=== PATIENT | female | born 1970 | race Caucasian/White ===

== ENCOUNTER → 2016-08-31 | Outpatient (CLI) | payer BC, OTHER | END | disposition home or self-care (01) | LOC: C.PAPS 12:42 | PROVIDERS: ATTEND Obstetrics & Gynecology | DX: Z01.419 Encounter for gynecological examination (general) (routine) without abnormal findings (principal) ==

== ENCOUNTER → 2017-11-09 | Outpatient (CLI) | payer OTHER ==
--- NOTE | 2017-11-09 15:41 | MAMMOGRAPHY REPORT ---
BILATERAL DIGITAL SCREENING MAMMOGRAM TOMOSYNTHESIS WITH CAD: 11/09/2017 CLINICAL HISTORY: Routine screening. The patient has no current complaints. TECHNIQUE: The study was acquired using full field digital technology and interpreted from soft copy. Breast tomosynthesis in addition to standard 2D mammography was performed. Current study was also ev aluated with a Computer Aided Detection (CAD) system. COMPARISON: Comparison is made to exam dated: 09/04/2012 mammogram - [facility]. BREAST COMPOSITION: The tissue of both breasts is heterogeneously dense, which may obscure small mass es. FINDINGS: No suspicious masses, calcifications, or areas of architectural distortion are noted in either breast . There has been no significant interval change compared to prior exams. Bilateral subpectoral salin e implants are stable in appearance. IMPRESSION: ACR BI-RADS CATEGORY 2: BENIGN There is no mammographic evidence of malignancy. A 1 year screening mammogram is recommended.( 019) The patient will receive written notification of the results. Some breast cancers are not detected with mammography. A negative mammographic report should not shannon y biopsy if a clinically suggestive mass is present. Gabrielle Marrero M.D. ah/:11/09/2017 14:59:22 Welfare Case Worker: RT Goldie(Evelio)(M), [facility] letter sent: Normal 1/2 BI-RADS Code: ACR BI-RADS Category 2: Benign
== END | disposition home or self-care (01) ==
LOC: C.MAMM 14:05
PROVIDERS: ATTEND Obstetrics & Gynecology
DX: Z12.31 Encounter for screening mammogram for malignant neoplasm of breast (principal); Z98.82 Breast implant status

== ENCOUNTER 2023-10-05 07:05 | Inpatient (IN) ==
--- NOTE | 2023-10-05 07:48 | Emergency Department Note ---
History of Present Illness General Chief complaint: Back Injury/Pain Stated complaint: BACK AND ABD PAIN Time Seen by Provider: 10/05/23 07:32 History of Present Illness Maximum Pain Intensity: 8 This is a 53-year-old female that presents to the emergency department via private vehicle with complaints of "left back/left abdominal pain". The patient states that at 430 this morning she awoke with sudden onset left flank pain that radiates around in the left side of the abdomen. She has never had this before. She denies any trauma, injury, fevers, chills. She does note earlier in the week she did have some central lower chest pain and was to have blood work earlier today to further evaluate. Patient does note that earlier this year, in June, she had a full complement of cardiac stress test as well as pulmonary function test without a significant finding. No aggravating or alleviating factors of todays pain. The patient denies any history of kidney stones. No dysuria. Per review of the EMR the patient did undergo stress echocardiogram dated 07/13/2023. Interpretation of that revealed "normal stress echocardiogram at 6.9 METS and peak heart rate of 90 per 7% predicted maximum. No exercise-induced chest pain. No EKG changes. Baseline echocardiogram notes normal left ventricular systolic function without wall motion abnormalities". In addition, I also reviewed the patient's pulmonary function test as dated 07/02/2023. Home Medications Medication Instructions Recorded Confirmed Type norethindrone acetate 1.5 1 tab PO DAILY #84 tabs 06/12/23 10/05/23 Rx mg-ethinyl estradiol 30 mcg tablet (Junel) citalopram 10 mg tablet 10 mg PO QAM 10/05/23 10/05/23 History Allergies Allergy/AdvReac Type Severity Reaction Status Date / Time estrogens, conjugated Allergy Verified 10/04/23 14:41 [From Premarin] Past Med/Surg History Problem List (Updated 10/05/23 @ 19:37 by Marito Christensen PA-C) Abdominal pain, left lower quadrant (Acute) Acute left-sided low back pain (Acute) Pulmonary embolism (Acute) Renal infarct (Acute) JALIL (acute kidney injury) (Acute) Shortness of breath Elevated troponin (Acute) Flank pain Hypothyroid CYNDEE (generalized anxiety disorder) Oral contraceptive pill surveillance Surgical History Hx of breast surgery Hx of oral surgery Family History Father Reflux esophagitis Grandfather (Maternal) Lung cancer Grandmother (Paternal) Pancreatic cancer Other Endometriosis Denies family history of Ovarian cancer Prostate cancer Myocardial infarction Breast cancer Colorectal cancer Social History Smoking Status: Never smoker Second Hand Exposure: No; Do You Dip or Chew Tobacco: No; Hx Alcohol Use: Yes Alcohol type: wine Hx Substance Use: No Preferred Language: Cymraes Communication Ability: Effective Visual Impairment: No Limitations Hearing Ability: Normal Defect Cutter Required: No Beliefs That Will Affect Care: None marital status: Current Living Situation: Spouse current occupational status: employed 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 How many Children do You have: 2 Feels Safe at Home: Yes Childhood Exposure to Second-Hand Smoke: No Diet: regular Diet Comment: regular Dental Care, Regularly: Yes Physical Activity Frequency: 3-4 Times per Week Seatbelt Use: always Sunscreen Use: Yes Assistive Devices: Glasses Review of Systems A total of 10 systems reviewed and were otherwise negative Physical Exam Vital Signs Vital Signs - 24 hr 10/05/23 07:09 10/05/23 07:51 10/05/23 08:27 Temperature 36.7 C Temperature Source Oral Pulse Rate 80 81 Pulse Rate [Apical] 82 Respiratory Rate 24 18 Respiratory Effort / Characteristics Non-Labored Respiratory Depth Shallow Normal Respiratory Pattern Regular Blood Pressure 139/75 Blood Pressure [Right Arm] 139/104 H Blood Pressure Mean 96 Blood Pressure Mean [Right Arm] 115 Pulse Oximetry 95 96 Oxygen Delivery Method Room Air Room Air Sepsis Recent Fever Within 48 Hours No Sepsis New/Unexplained Change in Mental Status No Sepsis Action Taken by Nursing No Action Required 10/05/23 09:02 Temperature Temperature Source Pulse Rate Pulse Rate [Apical] 86 Respiratory Rate 18 Respiratory Effort / Characteristics Non-Labored Respiratory Depth Normal Respiratory Pattern Regular Blood Pressure Blood Pressure [Right Arm] 129/86 Blood Pressure Mean Blood Pressure Mean [Right Arm] 100 Pulse Oximetry 94 Oxygen Delivery Method Room Air Sepsis Recent Fever Within 48 Hours Sepsis New/Unexplained Change in Mental Status Sepsis Action Taken by Nursing VITAL SIGNS - Vital signs and nursing notes were reviewed. Stable and afebrile. GENERAL - 53-year-old female appearing her stated age who is in no acute distress. Communicates well with provider and answers questions appropriately. SKIN - Without rashes. HEAD - NC/AT. EYES - PERRL with EOMI bilaterally. Sclera anicteric. EARS - No deformities of external structures noted on gross examination bilaterally. NOSE - Midline and without cyanosis. No epistaxis or purulent drainage noted. MOUTH/OROPHARYNX - Without perioral cyanosis. NECK - Neck with FROM. No nuchal rigidity. LUNGS - Chest wall symmetric without accessory muscle use, intercostals retractions, or central cyanosis. Normal vesicular breath sounds CTA B/L. No wheezes, rales, or rhonchi appreciated. CARDIAC - RRR ABDOMEN - Abdominal contour normal without pulsations or visible masses. BS normoactive all four quadrants. No tenderness, palpable masses, hepatosplenomegaly, or ascites noted. EXTREMITIES - No clubbing or peripheral cyanosis. +5/5 strength noted in UE/LE bilaterally. MUSCULOSKELETALno reproducible tenderness to palpation overlying the L-spine. Patient does point to the paraspinous musculature just to the left of the inferior L-spine as a location of discomfort but the area is nontender. No overlying skin changes. NEUROLOGIC - Cranial nerves II through XII grossly intact. PSYCH - A&O, pleasant on exam. Pt is very pleasant and interacts well with examiner. Course Administered Medications Citalopram Hydrobromide (Citalopram 20 Mg Tab) 10 mg PO [facility] Stop: 11/04/23 16:38 Last Admin: 10/05/23 17:58 Dose: 10 mg Documented By: DANE Hydromorphone HCl (Hydromorphone Inj 0.5 Mg/0.5 Ml Syr) 0.5 mg IV Q6H PRN PRN Reason: moderate-severe pain Stop: 10/19/23 16:38 Last Admin: 10/05/23 17:52 Dose: 0.5 mg Documented By: DANE Heparin Sodium/Dextrose (Heparin Sodium/Dextrose) 25,000 units in 500 mls @ 22 mls/hr IV .[id number] [facility]; Protocol Stop: 11/04/23 12:44 Last Titration: 10/05/23 22:39 Dose: 1,100 units/hr, 22 mls/hr Documented By: ZHANE Co-signed By: MEENU Titration: 10/05/23 22:08 Dose: 1,150 units/hr, 23 mls/hr Documented By: ZHANE Co-signed By: ULISES Titration: 10/05/23 21:04 Dose: 0 units/hr, 0 mls/hr Documented By: ZHANE Co-signed By: ULISES Titration: 10/05/23 19:12 Dose: 1,250 units/hr, 25 mls/hr Documented By: DANE Co-signed By: ZHANE Titration: 10/05/23 16:40 Dose: 1,250 units/hr, 25 mls/hr Documented By: DANE Co-signed By: JUMA Admin: 10/05/23 13:58 Dose: 1,250 units/hr, 25 mls/hr Documented By: JAZMIN Co-signed By: MICKIE Sodium Chloride (Nss) 1,000 mls @ 125 mls/hr IV .Q8H [facility] Stop: 10/06/23 00:38 Last Admin: 10/05/23 17:57 Dose: 125 mls/hr Documented By: DANE Miscellaneous (Remove Lidoderm Patch) 1 each N/A DAILY@2100 [facility] Stop: 11/04/23 20:59 Last Admin: 10/05/23 19:59 Dose: 1 each Documented By: ZHANE Discontinued Medications Heparin Sodium (Porcine) (Heparin Sod (Porcine) 1000 Unit/Ml) 6,000 units IV NOW ONE Stop: 10/05/23 12:42 Last Admin: 10/05/23 13:58 Dose: 6,000 units Documented By: JAZMIN Co-signed By: MICKIE Hydromorphone HCl (Hydromorphone Inj 0.5 Mg/0.5 Ml Syr) 0.5 mg IV NOW STA Stop: 10/05/23 08:26 Last Admin: 10/05/23 08:30 Dose: Not Given Documented By: JUAN PABLO Hydromorphone HCl (Hydromorphone Inj 0.5 Mg/0.5 Ml Syr) 0.25 mg IV NOW STA Stop: 10/05/23 09:38 Last Admin: 10/05/23 09:44 Dose: 0.25 mg Documented By: KENTRELL Hydromorphone HCl (Hydromorphone Inj 0.5 Mg/0.5 Ml Syr) 0.25 mg IV NOW STA Stop: 10/05/23 11:17 Last Admin: 10/05/23 12:00 Dose: 0.25 mg Documented By: JAZMIN Sodium Chloride (Nss) 1,000 mls @ 500 mls/hr IV .Q2H [facility] Stop: 10/05/23 10:14 Last Infusion: 10/05/23 10:31 Dose: Infused Documented By: Admin: 10/05/23 08:27 Dose: 500 mls/hr Documented By: JUAN PABLO Ioversol (Optiray 320 125ml) 120 ml IV ONCE ONE Stop: 10/05/23 11:48 Last Admin: 10/05/23 17:15 Dose: Not Given Documented By: DANE Ketorolac Tromethamine (Ketorolac Tromethamine 15 Mg/Ml Vial) 10 mg IV NOW ONE Stop: 10/05/23 11:54 Last Admin: 10/05/23 12:05 Dose: 10 mg Documented By: JAZMIN Lidocaine (Lidocaine 5% 1 Patch) 1 patch TD NOW STA Stop: 10/05/23 09:38 Last Admin: 10/05/23 09:43 Dose: 1 patch Documented By: KENTRELL Morphine Sulfate (Morphine Sulfate 4 Mg/Ml 1 Ml Carp\\Vial) 4 mg IV NOW STA Stop: 10/05/23 07:43 Last Admin: 10/05/23 07:50 Dose: 4 mg Documented By: KENTRELL Morphine Sulfate (Morphine Sulfate 2 Mg/Ml Carp) 2 mg IV NOW STA Stop: 10/05/23 08:27 Last Admin: 10/05/23 08:30 Dose: 2 mg Documented By: JUAN PABLO Ondansetron HCl (Ondansetron Inj 2 Mg/Ml 2 Ml Vial) 4 mg IV NOW STA Stop: 10/05/23 07:43 Last Admin: 10/05/23 07:50 Dose: 4 mg Documented By: KENTRELL Medical Decision Making Laboratory Data 10/05/23 07:25 10/05/23 07:25 Lab Results 10/05/23 10/05/23 Range/Units 07:25 09:29 WBC 11.63 H (4.8-10.8) K/ul RBC 4.99 (4.20-5.40) M/uL Hgb 15.5 (12.0-16.0) g/dl Hct 46.9 (37.0-47.0) % MCV 94.0 (80.0-100.0) fL MCH 31.1 (25.0-34.0) pg MCHC 33.0 (32.0-36.0) g/dL RDW Std Deviation 43.3 (36.4-46.3) fL RDW Coeff of Joseph 12.5 (11.5-14.5) % Plt Count 252 (130-400) K/uL MPV 9.9 (9.4-12.4) fL Immature Gran % (Auto) 0.4 % Neut % (Auto) 83.1 % Lymph % (Auto) 10.5 % Dorado % (Auto) 4.1 % Eos % (Auto) 1.6 % Baso % (Auto) 0.3 % Neut # (Auto) 9.65 H (1.40-6.50) K/uL Lymph # (Auto) 1.22 (1.20-3.40) K/uL [place] # (Auto) 0.48 (0.11-0.59) K/uL Eos # (Auto) 0.19 (0.00-0.50) K/uL Baso # (Auto) 0.04 (0.00-0.20) K/uL Immature Gran # (Auto) 0.05 (0.01-0.20) K/uL PT 10.3 (9.0-12.0) Seconds INR 0.9 (0.9-1.1) APTT 23 (21-31) Seconds PTT Ratio 0.9 D-Dimer 7730 H* (0-500) ug/L FEU Sodium 138 (136-145) mmol/L Potassium 4.4 (3.5-5.1) mmol/L Chloride 108 H (98-107) mmol/L Carbon Dioxide 23 (21-32) mmol/L Anion Gap 7 (3-11) BUN 12 (6-23) mg/dl Creatinine 1.36 H (0.6-1.2) mg/dl Est Cr Clr Drug Dosing 53.8 ml/min Est GFR ( Amer) 51.7 ml/min Est GFR (Non-Af Amer) 44.6 ml/min BUN/Creatinine Ratio 8.8 L (10-20) Glucose 115 H (70-99(Fasting)) mg/dl Calcium 9.2 (8.6-10.3) mg/dl Total Bilirubin 0.5 (0.2-1.0) mg/dl AST 20 (13-39) U/L ALT 21 (7-52) U/L Alkaline Phosphatase 69 (34-104) U/L Troponin I High Sens 32.9 H 30.5 H (0-14) pg/ml Total Protein 7.1 (6.0-8.3) gm/dl Albumin 4.4 (3.4-5.0) gm/dl Globulin 2.7 (2.5-4.0) gm/dl Albumin/Globulin Ratio 1.6 (0.9-2) Lipase 18 (11-82) U/L TSH 6.737 H (0.300-4.500) uIu/ml Free T4 0.69 (0.61-1.60) ng/dl HCG, Qual Negative (Negative) Imaging Data Radiologist's Impression: Abdomen/Pelvis CT 10/05/23 11:00 CT SCAN OF THE ABDOMEN AND PELVIS WITH IV CONTRAST CLINICAL HISTORY: Left sided abdominal pain. Elevated d-dimer. COMPARISON STUDY: Unenhanced abdominal CT performed earlier the same day 10/05/2023. TECHNIQUE: Following the IV administration of 120 cc of Optiray 320, CT scan of the abdomen and pelvis is performed from the lung bases to the proximal femora. Images are reviewed in the axial, sagittal, and coronal planes. IV contrast was administered without complication. A dose lowering technique was utilized adhering to the principles of ALARA. FINDINGS: Lung bases: The heart is normal in size and without pericardial effusion. The lung bases are clear. Bilateral breast implants are partially imaged. Pulmonary emboli are seen within branches of the right and left lower lobe pulmonary arteries. Liver: The contrast-enhanced liver is normal in size, contour, and attenuation. Fatty infiltration is seen adjacent to the falciform ligament. There is no intrahepatic biliary ductal dilatation. The hepatic veins and portal veins are patent. A 2.1 cm left lobe hemangioma is seen on image #76. Gallbladder: Unremarkable. Spleen: Normal in size and attenuation. Pancreas: Unremarkable. Adrenal glands: Unremarkable. Kidneys: The contrast enhanced kidneys are normal in size and without hydronephrosis. There are large wedge-shaped perfusion defects noted in the left kidney consistent with renal infarcts. The right kidney enhances normally. Abdominal vasculature: The abdominal aorta is normal in course and caliber. Bowel: There are scattered colonic diverticula without CT evidence of acute diverticulitis. No bowel obstruction is seen. A duodenal diverticulum is noted. The appendix is well-visualized and normal. Peritoneum: There is no intraperitoneal free air or abdominal ascites. There is a fat-containing umbilical hernia. Lymphadenopathy: None. Pelvic viscera: The bladder is decompressed and grossly unremarkable. The uterus and adnexa are normal as imaged. There is trace free fluid in the cul-de-sac. Skeletal structures: No lytic or blastic lesions are seen. IMPRESSION: 1. There are bilateral lower lobe pulmonary emboli. 2. Large cortical infarcts are seen in the left kidney. 3. These findings raise suspicion for paradoxical embolus/[id number] shunt. Cardiology evaluation is recommended. 4. Trace free fluid in the pelvis is nonspecific and likely within physiologic limits. 5. Additional findings as above. ACT 112: Negative or not required by law. Electronically signed by: Conner Tipton M.D. 10/05/2023 12:08 PM Chest CTA 10/05/23 11:00 CT angio chest PE protocol CLINICAL HISTORY: Left low back/abdomen pain, kaitlin D-dimer+troponin TECHNIQUE: Multidetector row helical CT of the chest was performed with angiographic protocol. Coronal and sagittal reformations were obtained. Coronal and sagittal MIPS were obtained from the axial data set and were submitted for review. Automated dose lowering techniques and/or adjustment according to patient size were utilized for this exam. CT DOSE: 1731.13 mGy.cm Comparison: None available at the time of this dictation. FINDINGS: Lungs and pleura: Biapical scarring is seen. Heart and pericardium: There is questionable flattening of the interventricular septum and prominent right ventricle. Vessels: Pulmonary bullae are in the right main pulmonary artery and multiple segmental/subsegmental branches. Emboli are also seen in subsegmental branches on the left. Mediastinum and sparkle: Unremarkable. Chest wall and lower neck: Bilateral breast implants are seen. Abdomen: Unremarkable. Bones: Unremarkable. IMPRESSION: Nonocclusive right main pulmonary artery thrombus as well as segmental and subsegmental emboli in all lobes of the lungs. There is questionable right heart strain. No pulmonary infarcts. ACT 112: Negative or not required by law. Electronically signed by: Sundeep Brothers M.D. 10/05/2023 12:12 PM [facility] Narrative Patient was seen and evaluated as above in room B12b. Review was performed of triage nursing notes and vital signs. I did review pertinent outpatient visits and patient history. After obtaining a thorough history and physical examination the above work up was performed. Patient presents to us today for evaluation of left low back/flank pain that wraps around to the left abdomen. Specifically, I did have the patient sit up at the bedside and point to the area of pain in her low back and she points to the paraspinous musculature just to the left of the L-spine around the L5/S1 area. She notes that wraps around then to her lower left lower quadrant area. During review of systems questioning also identified the patient did have some chest pain earlier this week with dyspnea but she does note multiple tests of chest/pulmonary area earlier this year which was rather unremarkable. She did have a cardiac exercise stress test as noted in the HPI which was essentially negative. Patient denies any chest pain or shortness of breath the present time, rather notes left low back/left-sided abdominal pain. The pain is not reproducible on exam. She denies any history of kidney stones. Options of care were discussed with the patient. IV access was established. Labs were drawn. I did order the patient IV morphine for pain, IV Zofran for nausea and IV fluids as the patient does clinically appear mildly dry. CT scan of the abdomen/pelvis without contrast was ordered in addition to chest x-ray and laboratory studies. EKG reveals normal sinus rhythm at a rate of 70 bpm. QTc 442. QRS 70. No ST elevation. Chest x-ray was ordered and per my interpretation is negative for acute process. Labs reveal mild leukocytosis 11.63. No anemia. Coags normal. No emergent metabolic disturbance but will note mild JALIL with creatinine of 1.36. Hyperglycemia 115. Lipase normal. TSH reveals elevated finding at 6.7 with normal free T4. hCG negative. Urinalysis reveals what is likely a contaminated sample noting the amount of epithelial cells however, there is trace blood noted. A CT scan of the abdomen/pelvis was performed without contrast to evaluate this patient's sudden onset left low back and left lower quadrant abdominal pain. Initially noting the mild JALIL and suspicion for possible kidney stone, plan was to hold off on IV CT contrast. However, the patient's CT scan of the Abd/pelvis w/out contrast returned essentially negative for acute process revealing no renal or ureteral calculi or hydronephrosis and no bowel obstruction or bowel thickening. Initial troponin did return mildly elevated here today at 32.9 and then 30.5 upon recheck. There is no chest pain or shortness of breath at this time. At this time I do believe that further evaluation and management in the inpatient setting is warranted. I did discuss this with Dr. Pyle, hospitalist. In reviewing the patient, we did agree to proceed with a D-dimer noting the patient's elevated troponin in the setting of left low back pain, left lower quadrant pain but negative CT scan of the abdomen pelvis for acute process. I ordered the D dimer and it did return elevated at 7730. We will proceed now with contrasted studies of the chest, abdomen and pelvis. CT angio chest PE study and CT abd/pelvis w/ IV contrast. I reviewed the benefits and risks with the patient and through shared decision making we will proceed. CT scan results as above. Unfortunately studies reveal: nonocclusive right main pulmonary artery thrombus as well as segmental and subsegmental emboli in the lower lobes of the lungs. Question right heart strain. No pulmonary infarcts. There is also comment of large cortical infarct seen in the left kidney. There is concern and suspicion for paradoxical embolus/right to left shunt. I immediately reviewed these findings with the patient and family at bedside. The patient denies any history of blood clots. She denies any family history of blood clots. She denies any known clotting disorders. The patient denies any headache. She does not have any evidence of CVA on exam. She denies any known history of PFO. I did review benefit versus risk of IV heparin with the patient. At this time it is felt that the benefit outweighed risk. I then went to place the order for heparin however simultaneously the hospitalist also ordered heparin which at this time we will proceed with. In addition, stat echo also ordered by hospitalist service and will further manage the patient. Please refer to further documentation regarding the patient's stay. Patient and family were updated at bedside several times throughout the patient's stay and were able to ask questions. Patient was kept informed upon findings today and was involved in the decision- making process. Patient did receive IV analgesia throughout her time here in the emergency department for management of her symptoms. GCS: 15 In the evaluation and treatment of this patient the following differential diagnoses were entertained: UTI, pyelonephritis, dissection, renal calculi/ureteral calculi, diverticulitis, lumbar strain, sprain, cauda equina syndrome, renal infarct, among others Impression & Plan Pulmonary embolism, JALIL (acute kidney injury), Renal infarct, Elevated troponin, Acute left-sided low back pain, Abdominal pain, left lower quadrant Discharge Plan Visit Data Chief Complaint: Back Injury/Pain Stated Complaint: BACK AND ABD PAIN ED Provider: Yenifer Luo ED Midlevel Provider: Marito Christensen Discharge Problem: Pulmonary embolism, JALIL (acute kidney injury), Renal infarct, Elevated troponin, Acute left-sided low back pain, Abdominal pain, left lower quadrant Patient Disposition: Admitted As Inpatient Condition: Good Discharge Instructions Interventions: ED Discharge Assessment Last Done: 10/05/23 15:58
[2023-10-05] MEDS: MoRPHine SULFATE 4 MG/ML 1 ML CARP\\VIAL IV STA (07:50)
[2023-10-05] MEDS: ONDANSETRON INJ 2 MG/ML 2 ML VIAL IV STA (07:50)
[2023-10-05 07:57] LABS: Basophils # (auto) 0.04 K/uL (0.00-0.20); Basophils % (auto) 0.3 %; Eosinophils # (auto) 0.19 K/uL (0.00-0.50); Eosinophils % (auto) 1.6 %; Hematocrit (blood only) 46.9 % (37.0-47.0); Hemoglobin 15.5 g/dl (12.0-16.0); Immature Granulocytes # (auto) 0.05 K/uL (0.01-0.20); Immature Granulocytes % (auto) 0.4 %; Lymphocytes # (auto) 1.22 K/uL (1.20-3.40); Lymphocytes % (auto) 10.5 %; Mean Corpuscular Hemoglobin 31.1 pg (25.0-34.0); Mean Platelet Volume 9.9 fL (9.4-12.4); Monocytes # (auto) 0.48 K/uL (0.11-0.59); Monocytes % (auto) 4.1 %; Neutrophils # (auto) 9.65 K/uL (1.40-6.50); Neutrophils % (auto) 83.1 %; Platelet Count 252 K/uL (130-400); RDW Coefficient of Variation 12.5 % (11.5-14.5); RDW Standard Deviation 43.3 fL (36.4-46.3); Red Blood Count 4.99 M/uL (4.20-5.40); White Blood Count 11.63 K/ul (4.8-10.8)
[2023-10-05 08:12] LABS: Appearance Urine Cloudy (Clear); Bacteria Urine Automated 1+ (None Seen); Bilirubin Urine Negative (Negative); Blood Urine Trace (Negative); Cast Urine Automated 0-2 /lpf (0-2); Color Urine Dark Yellow; Epithelial Cell Urine Auto >20 /hpf (0-2); Glucose Urine UA Negative (Negative); Ketones Urine 2+ (Negative); Leukocyte Esterase Urine 1+ (Negative); Nitrite Urine Negative (Negative); Protein Urine 1+ (Negative); RBC Urine Automated 0-2 /hpf (0-2); Specific Gravity Urine 1.025 (1.000-1.030); Urobilinogen Urine Negative (Negative); pH Urine 5.5 (4.5-7.5)
[2023-10-05 08:17] LABS: Albumin Globulin Ratio 1.6 (0.9-2); Albumin Level 4.4 gm/dl (3.4-5.0); BUN Creatinine Ratio 8.8 (10-20); Bilirubin,Total 0.5 mg/dl (0.2-1.0); Calcium 9.2 mg/dl (8.6-10.3); Creatinine Clr Calc Pharmacy 53.8 ml/min; Est GFR (African American) 51.7 ml/min; Est GFR (Non-African American) 44.6 ml/min; Globulin 2.7 gm/dl (2.5-4.0); Potassium 4.4 mmol/L (3.5-5.1); Total Protein 7.1 gm/dl (6.0-8.3)
[2023-10-05 08:21] LABS: Pregnancy Test, Serum Negative (Negative)
[2023-10-05 08:23] LABS: Troponin I High Sensitivity 32.9 pg/ml (0-14)
[2023-10-05] MEDS: SODIUM CHLORIDE 0.9% 1,000 ML IV SCH ×2 (08:27→17:57)
[2023-10-05] MEDS: MoRPHine SULFATE 2 MG/ML CARP IV STA (08:30)
[2023-10-05] MEDS: HYDROmorphone INJ 0.5 MG/0.5 ML SYR IV STA ×3 (08:30→12:00)
--- NOTE | 2023-10-05 08:30 | XRay Report ---
SINGLE VIEW CHEST CLINICAL HISTORY: Left-sided chest pain. Left flank pain. FINDINGS: An AP, portable, upright chest radiograph is compared to study dated 06/15/2023. The cardiome diastinal silhouette is unremarkable. There is mild elevation of the right hemidiaphragm. The lungs a nd pleural spaces are clear. No pneumothorax is seen. The bony thorax is grossly intact. IMPRESSION: No active disease in the chest. ACT 112: Negative or not required by law. Electronically signed by: Conner Tipton M.D. 10/05/2023 8:27 AM
[2023-10-05 08:33] LABS: Thyroid Stimulating Hormone 6.737 uIu/ml (0.300-4.500)
--- NOTE | 2023-10-05 08:41 | CT Scan Report ---
ABDOMEN AND PELVIS CT WITHOUT CONTRAST CT DOSE: 860.92 mGy.cm HISTORY: Acute left-sided flank pain L flank/back/abd pain TECHNIQUE: Multiaxial CT images of the abdomen and pelvis were performed without contrast. A dose lo wering technique was utilized adhering to the principles of ALARA. COMPARISON STUDY: None. FINDINGS: Partially imaged breast implants. Clear lung bases. The unenhanced spleen, pancreas, gallbl adder and adrenal glands are within normal limits. Indeterminate ill-defined slightly hypodense 2.0 x 1.8 cm left hepatic lobe lesion on image 60 series 3. Liver is otherwise unremarkable. Unremarkable kidneys without renal or ureteral calculi or hydronephrosis. Decompressed. Urinary bladd er with wall thickening. Uterus and adnexa are within normal limits. No abdominal aortic aneurysm or lymphadenopathy. Duodenal diverticulum. No bowel obstruction or bowel wall thickening. There is mild colonic diverticu losis. No ascites or mesenteric inflammation. The appendix is not definitively seen. Tiny fat filled umbilical hernia. No acute fracture. IMPRESSION: 1. No renal or ureteral calculi or hydronephrosis. 2. No bowel obstruction or bowel wall thickening. 3. Colonic diverticulosis. 4. Indeterminate 2 cm left hepatic lobe lesion, incompletely characterized on this noncontrast study. ACT 112: Negative or not required by law. The above report was generated using voice recognition software. It may contain grammatical, syntax o r spelling errors. Electronically signed by: Tyrone Carter M.D. 10/05/2023 8:39 AM
[2023-10-05 09:12] LABS: T4 Free Thyroxine 0.69 ng/dl (0.61-1.60)
--- NOTE | 2023-10-05 09:27 | History & Physical Report ---
Date of Service October 05, 2023 Assessment & Plan (1) Pulmonary embolism: Plan: Presented with shortness of breath and chest pain which had largely resolved several days prior to admission, left calf cramping. Venous Doppler ordered-shows left peroneal vein DVT. CT angiogram chest with right main pulmonary artery PE and multiple bilateral segmental and subsegmental PEs. No history personally or in the family of VTE, no history of miscarriages in the patient, no recent surgeries or long travel. She is quite active and not sedentary. She is however on oral contraceptive pills. She is a non-smoker. She has a history of headaches and chronic joint pains, hypothyroidism-question if does have some sort of chronic autoimmune disorder that could put her at risk for hypercoagulability She is hemodynamically stable, has a mildly elevated troponin. With left renal infarct, likely has PFO with paradoxical embolus, but could also have occult atrial fibrillation/flutter. Admit to PCU for telemetry monitoring for arrhythmias Start heparin drip and eventually convert to DOAC Order hypercoagulable workup Supplemental oxygen as needed to keep pulse ox greater than 90% IV Dilaudid as needed for pain control Monitor for withdrawal vaginal bleeding when she discontinues her continuous OCP's-can reach out to gynecology if has any issues (2) Elevated troponin: Plan: No ischemic changes on ECG. Typically is very active and just had a normal stress test in 06/2023 Secondary to PE-trend serial troponin Echocardiogram ordered (3) Renal infarct: Plan: Likely secondary to paradoxical embolus given DVT and PEs, but could also have hypercoagulable state versus a occult atrial fibrillation or flutter Monitor on telemetry for arrhythmia Checking echocardiogram with bubble study Starting heparin drip Renal function is decreased somewhat with creatinine 1.3. Follow BMP Consult urology Monitor blood pressures and monitor for development of pyelonephritis Pain control with IV Dilaudid (4) JALIL (acute kidney injury): Plan: Creatinine 1.3 on admission likely secondary to renal infarct Follow BMP Give 1 L normal saline (5) Hypothyroid: Plan: Previously was on levothyroxine but discontinued it. TSH here elevated at 6.7, free T4 normal Subclinical hypothyroidism Follow as an outpatient (6) CYNDEE (generalized anxiety disorder): Plan: Patient recently was prescribed Celexa but has not yet started it. She has been on it in the past and is agreeable to resuming as her anxiety has worsened recently Start Celexa 10 mg p.o. daily Plan Disposition-admit to PCU Full code Care discussed with cardiology, ED provider, and family members at the bedside History of Present Illness Chief Complaint: Left flank pain Primary Care Provider: Rhonda Pearson MD This patient is a 53-year-old female with history of generalized anxiety disorder and hypothyroidism who presents to the ER with acute onset of left flank pain wrapping around to the left lower quadrant that woke her from sleep at 430 this morning. She does reports that she had some chest pain and shortness of breath a few days ago but that has since resolved. She has noticed some swelling in the ankles lately and had cramping in her left calf this morning. She denies any urinary or bowel issues. No blood in the stool or urine. No fevers or chills. She has had intermittent issues with shortness of breath and a dry cough but had a full cardiac and pulmonary workup several months ago that was normal with normal stress test and PFTs. In the ER, she was found to have a normal noncontrast CT abdomen/pelvis and a normal chest x-ray, however her troponin was mildly elevated. I suggested a D- dimer which was added on and was elevated and a subsequent CT angiogram of the chest showed a right main pulmonary artery PE and multiple bilateral segmental and subsegmental PEs. A CT of the abdomen/pelvis with contrast then showed multiple infarcts in the left kidney. She will be admitted for PEs and left renal infarct. Allergies Allergy/AdvReac Type Severity Reaction Status Date / Time estrogens, conjugated Allergy Verified 10/04/23 14:41 [From Premarin] Home Medications Medication Instructions Recorded Confirmed Type norethindrone acetate 1.5 1 tab PO DAILY #84 tabs 06/12/23 10/05/23 Rx mg-ethinyl estradiol 30 mcg tablet (Junel) citalopram 10 mg tablet 10 mg PO QAM 10/05/23 10/05/23 History Past Med/Surg History Problem List Abdominal pain, left lower quadrant (Acute) Acute left-sided low back pain (Acute) Pulmonary embolism (Acute) Renal infarct (Acute) JALIL (acute kidney injury) (Acute) Shortness of breath Elevated troponin (Acute) Flank pain Hypothyroid CYNDEE (generalized anxiety disorder) Oral contraceptive pill surveillance Surgical History Hx of breast surgery Hx of oral surgery Family History Father Reflux esophagitis Grandfather (Maternal) Lung cancer Grandmother (Paternal) Pancreatic cancer Other Endometriosis Denies family history of Ovarian cancer Prostate cancer Myocardial infarction Breast cancer Colorectal cancer Social History Smoking Status: Never smoker Second Hand Exposure: No; Do You Dip or Chew Tobacco: No; Hx Alcohol Use: Yes Alcohol type: wine Hx Substance Use: No Preferred Language: Japanese Communication Ability: Effective Visual Impairment: No Limitations Hearing Ability: Normal Bunghole Borer Required: No Beliefs That Will Affect Care: None marital status: Current Living Situation: Spouse current occupational status: employed 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 How many Children do You have: 2 Feels Safe at Home: Yes Childhood Exposure to Second-Hand Smoke: No Diet: regular Diet Comment: regular Dental Care, Regularly: Yes Physical Activity Frequency: 3-4 Times per Week Seatbelt Use: always Sunscreen Use: Yes Assistive Devices: Glasses Review of Systems Review of Systems: All systems reviewed & are unremarkable except as noted in HPI & below Physical Exam Constitutional: WD/WN, vitals as above Eyes: PERRL, conjunctivae normal, anicteric sclerae ENMT: external ear and nose normal, oropharynx normal Neck: trachea midline, no thyromegaly Respiratory: normal respiratory effort, lungs clear to auscultation Cardiovascular: Rate/Rhythm: regular rate and regular rhythm Heart Sounds: no murmur Extremities: + edema (trace edema left leg) Gastrointestinal (Abdomen): Inspection/Auscultation: abdomen normal to inspection and normal bowel sounds; abdomen not distended Percussion/Palpation: + abdomen tender (Left CVA TTP and positive TTP LLQ without guarding or rebound) and abdomen soft; no guarding Musculoskeletal: Extremities: extremities normal to inspection; no cyanosis and no clubbing Skin: no rashes, warm and dry Neurologic: moves all extremities and awake; no focal motor deficits Psychiatric: A+Ox3, euthymic affect Results & Data Results & Data Vital Signs (Past 12 Hours) Vital Signs Temp Pulse Pulse Resp BP BP Pulse Ox 10/05/23 09:02 86 18 129/86 94 10/05/23 08:27 81 10/05/23 07:51 82 18 139/104 H 96 10/05/23 07:09 36.7 C 80 24 139/75 95 O2 Del Method 10/05/23 09:02 Room Air 10/05/23 08:27 10/05/23 07:51 Room Air 10/05/23 07:09 Room Air Laboratory Results CBC, CMP, troponin, TSH, free T4, hCG, urinalysis, D-dimer reviewed Diagnostic Findings CT abdomen/pelvis without contrast, CT abdomen/pelvis with contrast, CT a chest, chest x-ray all reviewed ECG Additional Comments: ECG on 10/05/2023 at 7:49 AM with normal sinus rhythm, rate 78, no ischemic changes Code Status & VTE Plan VTE Prophylaxis Plan VTE Prophylaxis will be ordered: Yes PG Care Time/CCT Total # of Minutes Spent Total Time Spent with Patient: Total time spent is greater than 50% in coordination of care (as documented) at patient's floor/unit and/or counseling patient: Coding Level of Care Code 25572 INT INP/OBS CARE 3/75MIN Diagnoses Pulmonary embolism I26.99 Elevated troponin R79.89 Renal infarct N28.0 JALIL (acute kidney injury) N17.9 Hypothyroid E03.9 CYNDEE (generalized anxiety disorder) F41.1
[2023-10-05 09:30] LABS: INR 0.9 (0.9-1.1); Partial Thromboplastin Ratio 0.9; Partial Thromboplastin Time 23 Seconds (21-31); Prothrombin Time 10.3 Seconds (9.0-12.0)
[2023-10-05] MEDS: LIDOCAINE 5% 1 PATCH TD STA (09:43)
[2023-10-05 10:52] LABS: D Dimer 7730 ug/L FEU (0-500)
--- NOTE | 2023-10-05 11:03 | Electrocardiogram Report ---
Test Reason : Blood Pressure : / mmHG Vent. Rate : 078 BPM Atrial Rate : 078 BPM P-R Int : 156 ms QRS Dur : 070 ms QT Int : 388 ms P-R-T Axes : 076 -03 067 degrees QTc Int : 442 ms Normal sinus rhythm Normal ECG No previous ECGs available Confirmed by Frederick Hamm ([id number]) on 10/05/2023 11:03:10 AM Referred By: REFERRED SELF Confirmed By:Frederick Hamm
[2023-10-05] MEDS: KETOROLAC TROMETHAMINE 15 MG/ML VIAL IV ONE (12:05)
--- NOTE | 2023-10-05 12:10 | CT Scan Report ---
CT SCAN OF THE ABDOMEN AND PELVIS WITH IV CONTRAST CLINICAL HISTORY: Left sided abdominal pain. Elevated d-dimer. COMPARISON STUDY: Unenhanced abdominal CT performed earlier the same day 10/05/2023. TECHNIQUE: Following the IV administration of 120 cc of Optiray 320, CT scan of the abdomen and pelv is is performed from the lung bases to the proximal femora. Images are reviewed in the axial, sagitta l, and coronal planes. IV contrast was administered without complication. A dose lowering technique w as utilized adhering to the principles of ALARA. FINDINGS: Lung bases: The heart is normal in size and without pericardial effusion. The lung bases are clear. B ilateral breast implants are partially imaged. Pulmonary emboli are seen within branches of the right and left lower lobe pulmonary arteries. Liver: The contrast-enhanced liver is normal in size, contour, and attenuation. Fatty infiltration is seen adjacent to the falciform ligament. There is no intrahepatic biliary ductal dilatation. The hep atic veins and portal veins are patent. A 2.1 cm left lobe hemangioma is seen on image #76. Gallbladder: Unremarkable. Spleen: Normal in size and attenuation. Pancreas: Unremarkable. Adrenal glands: Unremarkable. Kidneys: The contrast enhanced kidneys are normal in size and without hydronephrosis. There are large wedge-shaped perfusion defects noted in the left kidney consistent with renal infarcts. The right ki dney enhances normally. Abdominal vasculature: The abdominal aorta is normal in course and caliber. Bowel: There are scattered colonic diverticula without CT evidence of acute diverticulitis. No bowel obstruction is seen. A duodenal diverticulum is noted. The appendix is well-visualized and normal. Peritoneum: There is no intraperitoneal free air or abdominal ascites. There is a fat-containing umbi lical hernia. Lymphadenopathy: None. Pelvic viscera: The bladder is decompressed and grossly unremarkable. The uterus and adnexa are chencho l as imaged. There is trace free fluid in the cul-de-sac. Skeletal structures: No lytic or blastic lesions are seen. IMPRESSION: 1. There are bilateral lower lobe pulmonary emboli. 2. Large cortical infarcts are seen in the left kidney. 3. These findings raise suspicion for paradoxical embolus/[id number] shunt. Cardiology evaluation is recommended. 4. Trace free fluid in the pelvis is nonspecific and likely within physiologic limits. 5. Additional findings as above. ACT 112: Negative or not required by law. Electronically signed by: Conner Tipton M.D. 10/05/2023 12:08 PM
--- NOTE | 2023-10-05 12:14 | CT Scan Report ---
CT angio chest PE protocol CLINICAL HISTORY: Left low back/abdomen pain, kaitlin D-dimer+troponin TECHNIQUE: Multidetector row helical CT of the chest was performed with angiographic protocol. Way l and sagittal reformations were obtained. Coronal and sagittal MIPS were obtained from the axial yajaira a set and were submitted for review. Automated dose lowering techniques and/or adjustment according to patient size were utilized for this exam. CT DOSE: 1731.13 mGy.cm Comparison: None available at the time of this dictation. FINDINGS: Lungs and pleura: Biapical scarring is seen. Heart and pericardium: There is questionable flattening of the interventricular septum and prominent right ventricle. Vessels: Pulmonary bullae are in the right main pulmonary artery and multiple segmental/subsegmental branches. Emboli are also seen in subsegmental branches on the left. Mediastinum and sparkle: Unremarkable. Chest wall and lower neck: Bilateral breast implants are seen. Abdomen: Unremarkable. Bones: Unremarkable. IMPRESSION: Nonocclusive right main pulmonary artery thrombus as well as segmental and subsegmental emboli in all lobes of the lungs. There is questionable right heart strain. No pulmonary infarcts. ACT 112: Negative or not required by law. Electronically signed by: Sundeep Brothers M.D. 10/05/2023 12:12 PM
[2023-10-05] MEDS ORDERED: Heparin IV Adult Wt-Based Standard w/ INITIAL Bolus Protocol IV SCH (12:34)
--- NOTE | 2023-10-05 13:31 | Urology Consultation ---
Date of Consultation October 05, 2023 Assessment & Plan (1) Flank pain: (2) Renal infarct: 53 yo/F presenting to the emergency department today with sudden onset of left flank pain. Workup in the emergency department revealed left renal infarct as well as bilateral pulmonary emboli. Urology is consulted for left renal infarct Patient is afebrile, hemodynamically stable at this time Labs reviewedcreatinine 1.36, WBC 11.63, hemoglobin 15.5 Urine culture pendingfollow culture and treat if indicated CT abdomen pelvis with IV contrast reviewed and demonstrates large cortical infarcts in the left kidney Reviewed and discussed findings with patient No acute surgical intervention She is undergoing echocardiogram, cardiology consult pending Recommend supportive care, blood pressure monitoring and medical management Recommend hypercoagulable workup Management of PEs per hospital medicine Case reviewed and discussed with Dr. Wood SOSA will sign off, please contact our service with any additional questions or concerns History of Present Illness Reason for Consultation: Left renal infarct Requesting Physician: Dr. Pyle Attending Physician: Lizzy Pyle MD History of Present Illness This is a 53-year-old female with past medical history of hypothyroidism, CYNDEE, oral contraceptive use who presented to the emergency department today for evaluation of sudden onset of left flank pain starting earlier this morning. On arrival, she was afebrile and hemodynamically stable. Lab work showed WBC 11.63, hemoglobin 15.5, creatinine 1.36, D-dimer 7730, and troponin 32.9. Urinalysis showed 1+ protein, 2+ ketones, 1+ LE, 11-20 WBC, 0-2 RBC, >20 epithelial cells and 1+ bacteria. Noncontrast CT A/P showed no renal or ureteral calculi, no hydronephrosis. She underwent CT A/P with IV contrast which noted bilateral lower lobe pulmonary emboli. Large cortical infarcts seen in the left kidney. Chest CTA showed nonocclusive right main pulmonary artery thrombus as well as segmental and subsegmental emboli in all lobes of the lungs. She has been admitted to the hospital medicine service. Urology is consulted for left renal infarct. Patient seen and examined in the emergency department. She is awake and resting in litter currently undergoing echocardiogram. She reports a history of dyspnea on exertion in June. She previously underwent a workup in with cardiac stress test and pulmonary function testing without significant findings. She reports within the last week she noticed worsening dyspnea. She denies dysuria or hematuria. No significant UTI history or history of pyelonephritis. She denies nausea, vomiting, fever or chills. She continues to have left flank pain radiating to the left side of her abdomen. She currently rates her pain at 8 out of 10, has not improved since arrival. She reports she is on oral contraceptive pill. Allergies Allergy/AdvReac Type Severity Reaction Status Date / Time estrogens, conjugated Allergy Verified 10/04/23 14:41 [From Premarin] Home Medications Medication Instructions Recorded Confirmed Type norethindrone acetate 1.5 1 tab PO DAILY #84 tabs 06/12/23 10/05/23 Rx mg-ethinyl estradiol 30 mcg tablet (Junel) citalopram 10 mg tablet 10 mg PO QAM 10/05/23 10/05/23 History Patient History Surgical History Hx of breast surgery Hx of oral surgery Family History Father Reflux esophagitis Grandfather (Maternal) Lung cancer Grandmother (Paternal) Pancreatic cancer Other Endometriosis Denies family history of Ovarian cancer Prostate cancer Myocardial infarction Breast cancer Colorectal cancer Social History Smoking Status: Never smoker Second Hand Exposure: No; Do You Dip or Chew Tobacco: No; Hx Alcohol Use: No Hx Substance Use: No Preferred Language: Nepali Communication Ability: Effective Visual Impairment: No Limitations Hearing Ability: Normal Assistant Professor Of Sociology Required: No marital status: Current Living Situation: Spouse current occupational status: employed 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 How many Children do You have: 2 Feels Safe at Home: Yes Childhood Exposure to Second-Hand Smoke: No Diet: regular Diet Comment: regular Dental Care, Regularly: Yes Physical Activity Frequency: 3-4 Times per Week Seatbelt Use: always Sunscreen Use: Yes Assistive Devices: None Review of Systems Review of Systems: All systems reviewed & are unremarkable except as noted in HPI & below Physical Exam Constitutional: well developed and well nourished; no acute distress Eyes: no scleral abnormality Respiratory: normal respiratory effort; no respiratory distress and no labored breathing Gastrointestinal (Abdomen): Inspection/Auscultation: abdomen normal to inspection Musculoskeletal: Head/Neck/Chest: normocephalic Neurologic: moves all extremities and awake Psychiatric: Orientation: alert and oriented x 3 Results & Data Vital Signs (Past 12 Hours) Vital Signs Temp Pulse Pulse Resp BP BP Pulse Ox 10/05/23 12:42 79 10/05/23 11:12 78 16 131/84 91 10/05/23 09:02 86 18 129/86 94 10/05/23 08:27 81 10/05/23 07:51 82 18 139/104 H 96 10/05/23 07:09 36.7 C 80 24 139/75 95 O2 Del Method 10/05/23 12:42 10/05/23 11:12 Room Air 10/05/23 09:02 Room Air 10/05/23 08:27 10/05/23 07:51 Room Air 10/05/23 07:09 Room Air PG Care Time/CCT Total # of Minutes Spent Total Time Spent with Patient: Total time spent is greater than 50% in coordination of care (as documented) at patient's floor/unit and/or counseling patient: Coding Level of Care Code 02781 IN/OBS CONSULT LVL 4,60M Diagnoses Flank pain R10.9 Renal infarct N28.0
[2023-10-05] MEDS: HEPARIN SODIUM/DEXTROSE 25,000 UNITS/500 ML BAG IV SCH (13:58)
[2023-10-05] MEDS: HEPARIN SOD (PORCINE) 1000 UNIT/ML IV ONE (13:58)
--- NOTE | 2023-10-05 16:21 | Ultrasound Report ---
ULTRASOUND LEFT LOWER EXTREMITY VENOUS CLINICAL HISTORY: Left calf pain. COMPARISON STUDY: No priors TECHNIQUE: Real-time, grayscale, and color Doppler sonography of the deep veins of the left lower ext remity was performed from the inguinal crease to the calf. Compression and augmentation were utilized . FINDINGS: There is occlusive deep venous thrombosis seen in the peroneal veins. The remaining visuali zed calf vessels are patent. The common femoral, superficial femoral, and popliteal veins are patent and normally compressible. The greater saphenous vein and the profunda femoris vein at the junction w ith the common femoral vein are clear. IMPRESSION: Occlusive deep venous thrombosis is seen in the calf within the peroneal veins. ACT 112: Negative or not required by law. Electronically signed by: Conner Tipton M.D. 10/05/2023 4:20 PM
[2023-10-05] MEDS ORDERED: POLYETHYLENE (MIRALAX) 17 GM PACK PO PRN (16:39)
[2023-10-05] MEDS ORDERED: ONDANSETRON INJ 2 MG/ML 2 ML VIAL IV PRN (16:39)
--- NOTE | 2023-10-05 16:55 | XCELERA ---
[id number] \\[id number]
[2023-10-05] MEDS: OPTIRAY 320 125ml IV ONE (17:15)
[2023-10-05] MEDS: HYDROmorphone INJ 0.5 MG/0.5 ML SYR IV PRN (17:52)
[2023-10-05] MEDS: CITALOPRAM 20 MG TAB PO SCH (17:58)
[2023-10-05 20:54] LABS: ANTI-Xa, UFH(UnfractionatedHep 0.83 IU/ml (0.3-0.7)
[2023-10-06 08:29] LABS: Basophils # (auto) 0.03 K/uL (0.00-0.20); Basophils % (auto) 0.4 %; Eosinophils # (auto) 0.05 K/uL (0.00-0.50); Eosinophils % (auto) 0.6 %; Hematocrit (blood only) 40.3 % (37.0-47.0); Hemoglobin 13.2 g/dl (12.0-16.0); Immature Granulocytes # (auto) 0.02 K/uL (0.01-0.20); Immature Granulocytes % (auto) 0.3 %; Lymphocytes % (auto) 11.5 %; Mean Corpuscular Hemoglobin 31.4 pg (25.0-34.0); Mean Corpuscular Hgb Conc 32.8 g/dL (32.0-36.0); Mean Platelet Volume 10.1 fL (9.4-12.4); Monocytes # (auto) 0.42 K/uL (0.11-0.59); Monocytes % (auto) 5.4 %; Neutrophils % (auto) 81.8 %; Platelet Count 190 K/uL (130-400); RDW Coefficient of Variation 12.6 % (11.5-14.5); RDW Standard Deviation 43.9 fL (36.4-46.3); White Blood Count 7.82 K/ul (4.8-10.8)
[2023-10-06 08:32] LABS: Albumin Globulin Ratio 1.7 (0.9-2); Albumin Level 3.8 gm/dl (3.4-5.0); BUN Creatinine Ratio 9.6 (10-20); Bilirubin,Total 0.6 mg/dl (0.2-1.0); Calcium 8.5 mg/dl (8.6-10.3); Creatinine Clr Calc Pharmacy 64.4 ml/min; Est GFR (African American) 63.4 ml/min; Est GFR (Non-African American) 54.7 ml/min; Globulin 2.3 gm/dl (2.5-4.0); Potassium 4.7 mmol/L (3.5-5.1); Total Protein 6.1 gm/dl (6.0-8.3)
[2023-10-06 08:38] LABS: Troponin I High Sensitivity 23.3 pg/ml (0-14)
[2023-10-06 08:41] LABS: ANTI-Xa, UFH(UnfractionatedHep 0.33 IU/ml (0.3-0.7)
--- NOTE | 2023-10-06 12:16 | Cardiology Consultation ---
Date of Consultation October 06, 2023 Assessment & Plan (1) Abnormal echocardiogram: -bubble study suggests a significant [id number] shunt. -her presentation of a left lower extremity DVT, pulmonary emboli, renal infarction suggests a right to left shunt. -her workup should be performed by an adult congenital palliative care specialist. -the family favors [facility]. They will get me a contact physician. History of Present Illness Attending Physician: Lizzy Pyle MD History of Present Illness Mrs. Estrada is a 53-year-old female admitted yesterday with bilateral pulmonary emboli, left renal infarction, and the left lower extremity DVT. This consultation was ordered to assist in her cardiac management. The patient was in her usual state of health until last Sunday when she experienced a prolonged chest pain syndrome along with dyspnea. Her chest discomfort events resolved, however, dyspnea has persisted. On the morning of presentation, she woke at 4:30 with sudden onset of left-sided flank pain. She explains that this was excruciating, therefore, she presented to the emergency room for further care. Evaluation noted a left renal infar ction. She was also found to have a nonobstructing right main pulmonary artery embolism along with multiple segmental and subsegmental pulmonary emboli bilaterally. She was also found to have a left lower extremity DVT. Her echocardiogram noted normal left ventricular systolic function and a dilated right ventricle with normal function. The interventricular septum was flattened consistent with right-sided pressure and volume overload. The bubble study was extremely positive on the 1st beat suggesting a shunt. Results personally reviewed and discussed in detail. We have discussed need to involve an adult congenital palliative care specialist. The family would like to reach out to [facility] as their daughter works within that [facility]. Currently, patient is resting comfortably in bed without complaints. Past medical and surgical history 1. Hypothyroidism 2. 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 Allergies Allergy/AdvReac Type Severity Reaction Status Date / Time estrogens, conjugated Allergy Verified 10/04/23 14:41 [From Premarin] Home Medications Medication Instructions Recorded Confirmed Type norethindrone acetate 1.5 1 tab PO DAILY #84 tabs 06/12/23 10/05/23 Rx mg-ethinyl estradiol 30 mcg tablet (Junel) citalopram 10 mg tablet 10 mg PO QAM 10/05/23 10/05/23 History Patient History Surgical History Hx of breast surgery Hx of oral surgery Family History Father Reflux esophagitis Grandfather (Maternal) Lung cancer Grandmother (Paternal) Pancreatic cancer Other Endometriosis Denies family history of Ovarian cancer Prostate cancer Myocardial infarction Breast cancer Colorectal cancer Social History Smoking Status: Never smoker Second Hand Exposure: No; Do You Dip or Chew Tobacco: No; Hx Alcohol Use: Yes Alcohol type: wine Hx Substance Use: No Preferred Language: Ukrainian Communication Ability: Effective Visual Impairment: No Limitations Hearing Ability: Normal Professor Of Violin Required: No Beliefs That Will Affect Care: None marital status: Current Living Situation: Spouse current occupational status: employed 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 HEENT exam is negative. Neck is supple with full carotid upstrokes. There are no carotid bruits. Jugular venous pressure is flat at 90. There is no thyromegaly. Cardiovascular exam reveals a regular rhythm with a normal S1 and a split S2. No obvious murmurs. Lungs are clear without rales, rhonchi, or wheezes. Abdomen is soft and nontender without bruits. Extremities reveal intact radial artery and posterior tibial pulses bilaterally. There is no peripheral edema. Results & Data Vital Signs (Past 12 Hours) Vital Signs Temp Pulse Pulse Resp BP Pulse Ox O2 Del Method 10/06/23 08:26 72 10/06/23 07:54 37.0 C 80 18 129/85 97 Nasal Cannula 10/06/23 03:29 36.5 C 82 19 119/77 94 Nasal Cannula 10/06/23 00:50 82 O2 Flow Rate 10/06/23 08:26 10/06/23 07:54 1.0 10/06/23 03:29 1 10/06/23 00:50 Diagnostic Findings Echocardiogram notes normal left ventricular systolic function with ejection fraction of 60-65%. There were no wall motion abnormality. The right ventricle is dilated but has normal function. The interventricular septum is flattened suggesting right-sided pressure and volume overload. There was mild tricuspid regurgitation with pulmonary pressures calculated at 30 to 40 mmHg. The bubble study was very positive, even on the 1st beat. EKG notes sinus rhythm without abnormalities. PG Care Time/CCT Total # of Minutes Spent Total Time Spent with Patient: Total time spent is greater than 50% in coordination of care (as documented) at patient's floor/unit and/or counseling patient: Coding Level of Care Code 82374 IN/OBS CONSULT LVL 5,80M Diagnoses Abnormal echocardiogram R93.1
--- NOTE | 2023-10-06 13:06 | Hospitalist Progress Note ---
Date of Service October 06, 2023 Assessment & Plan (1) Pulmonary embolism: Plan: Presented with shortness of breath and chest pain which had largely resolved several days prior to admission, left calf cramping. Venous Doppler ordered-shows left peroneal vein DVT. CT angiogram chest with right main pulmonary artery PE and multiple bilateral segmental and subsegmental PEs. No history personally or in the family of VTE, no history of miscarriages in the patient, no recent surgeries or long travel. She is quite active and not sedentary. She is however on oral contraceptive pills. She is a non-smoker. She has a history of headaches and chronic joint pains, hypothyroidism-question if does have some sort of chronic autoimmune disorder that could put her at risk for hypercoagulability She is hemodynamically stable, has a mildly elevated troponin which peaked at 61 after admission. 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 Was started on heparin drip and is therapeutic-eventually switch to DOAC in 1 to 2 days-patient prefers Xarelto due to its once daily dosing. Recommend 6 months of anticoagulation unless hypercoagulable panel abnormal-then consider lifelong anticoagulation Continue telemetry monitoring to look for arrhythmias Monitor CBC Hypercoagulable workup drawn and pending-Antithrombin III and lupus anticoagulant screening were not drawn as she was already on heparin when labs were drawn, but will order lupus anticoagulant and interpret results with caution Check BRODERICK and rheumatoid factor given chronic joint pains and hypercoagulable state Supplemental oxygen as needed to keep pulse ox greater than 90%-now weaned off Continue IV Dilaudid as needed for pain control Monitor for withdrawal vaginal bleeding when she discontinues her continuous OCP's-can reach out to gynecology if has any issues (2) Elevated troponin: Plan: No ischemic changes on ECG. Typically is very active and just had a normal stress test in 06/2023 Secondary to PE Troponin peaked at 61 Echocardiogram No wall motion abnormalities (3) Renal infarct: Plan: Likely secondary to paradoxical embolus given DVT and PEs, but could also have hypercoagulable state versus a occult atrial fibrillation or flutter Monitor on telemetry for arrhythmia-none so far Echo with bubble study with PFO Treating with anticoagulation Renal function is decreased somewhat with creatinine 1.3 on admission and now improved to 1.1-continue to follow BMP Consult urology appreciated-no acute surgical intervention, recommends supportive care, BP monitoring, hypercoagulable workup Monitor for development of pyelonephritis Pain control with IV Dilaudid-pain now much improved (4) PFO (patent foramen ovale): Plan: Appreciate cardiology consultation Needs referral to tertiary care as an outpatient to consider closure-patient prefers to go to [facility] where her stepdaughter works-Dr. Hamm will assist with making this referral Could get SONALI at tertiary care as well (5) JALIL (acute kidney injury): Plan: Creatinine 1.3 on admission likely secondary to renal infarct Creatinine now improved to 1.1 after 1 L IV fluids Pain in left flank improving which hopefully means she is getting better perfusion of the left kidney on anticoagulation Follow BMP (6) Hypothyroid: Plan: Previously was on levothyroxine but discontinued it. TSH here elevated at 6.7, free T4 normal Subclinical hypothyroidism Follow as an outpatient (7) CYNDEE (generalized anxiety disorder): Plan: Patient recently was prescribed Celexa but has not yet started it. She has been on it in the past and is agreeable to resuming as her anxiety has worsened recently Started Celexa 10 mg p.o. daily Plan Disposition-continued stay PCU Full code Admission and Anticipated Discharge Date Admission Date: October 05, 2023 Subjective Patient feeling much better today. The pain in her left flank and left lower quadrant is down to it 2/10 in severity and she has not taken any pain medicine all day. Denies hematuria. No chest pains or shortness of breath. Telemetry with normal sinus rhythm with rates in the 70s to 80s I discussed her care with her and daughter at the bedside Physical Exam Constitutional: WD/WN, vitals as above Neck: trachea midline, no thyromegaly Respiratory: normal respiratory effort, lungs clear to auscultation Cardiovascular: Rate/Rhythm: regular rate and regular rhythm Heart Sounds: no murmur Extremities: + edema (trace edema left leg) Gastrointestinal (Abdomen): Inspection/Auscultation: abdomen normal to inspection and normal bowel sounds; abdomen not distended Percussion/Palpation: + abdomen tender (+ Mild TTP LLQ without guarding or rebound) and abdomen soft; no guarding Musculoskeletal: Extremities: extremities normal to inspection; no cyanosis and no clubbing Skin: no rashes, warm and dry Neurologic: moves all extremities and awake; no focal motor deficits Psychiatric: A+Ox3, euthymic affect Results & Data Results & Data Vital Signs (Past 12 Hours) Vital Signs Temp Pulse Pulse Pulse Resp BP Pulse Ox 10/06/23 12:12 36.6 C 87 18 144/87 H 97 10/06/23 08:26 72 10/06/23 07:54 37.0 C 80 18 129/85 97 10/06/23 03:29 36.5 C 82 19 119/77 94 O2 Del Method O2 Flow Rate 10/06/23 12:12 Room Air 10/06/23 08:26 10/06/23 07:54 Nasal Cannula 1.0 10/06/23 03:29 Nasal Cannula 1 Laboratory Results CBC, BMP, LFTs, troponins, urine culture, and anti-XA level reviewed PG Care Time/CCT Total # of Minutes Spent Total Time Spent with Patient: Total time spent is greater than 50% in coordination of care (as documented) at patient's floor/unit and/or counseling patient: Coding Level of Care Code 26545 SUB INP/OBS CARE 3/50MIN Diagnoses Pulmonary embolism I26.99 Elevated troponin R79.89 Renal infarct N28.0 PFO (patent foramen ovale) Q21.12 JALIL (acute kidney injury) N17.9 Hypothyroid E03.9 CYNDEE (generalized anxiety disorder) F41.1
[2023-10-06 18:01] LABS: ANTI-Xa, UFH(UnfractionatedHep 0.37 IU/ml (0.3-0.7)
[2023-10-06] MEDS: ACETAMINOPHEN 325 MG TAB PO PRN (19:30)
[2023-10-07 07:30] LABS: Basophils # (auto) 0.04 K/uL (0.00-0.20); Basophils % (auto) 0.4 %; Eosinophils # (auto) 0.05 K/uL (0.00-0.50); Eosinophils % (auto) 0.5 %; Hematocrit (blood only) 40.3 % (37.0-47.0); Hemoglobin 13.4 g/dl (12.0-16.0); Immature Granulocytes # (auto) 0.03 K/uL (0.01-0.20); Immature Granulocytes % (auto) 0.3 %; Lymphocytes % (auto) 9.2 %; Mean Corpuscular Hemoglobin 31.2 pg (25.0-34.0); Mean Corpuscular Hgb Conc 33.3 g/dL (32.0-36.0); Mean Corpuscular Volume 93.9 fL (80.0-100.0); Mean Platelet Volume 10.4 fL (9.4-12.4); Monocytes # (auto) 0.48 K/uL (0.11-0.59); Monocytes % (auto) 4.9 %; Neutrophils # (auto) 8.26 K/uL (1.40-6.50); Neutrophils % (auto) 84.7 %; Platelet Count 215 K/uL (130-400); RDW Coefficient of Variation 12.5 % (11.5-14.5); RDW Standard Deviation 43.2 fL (36.4-46.3); Red Blood Count 4.29 M/uL (4.20-5.40); White Blood Count 9.76 K/ul (4.8-10.8)
[2023-10-07 07:46] LABS: Albumin Globulin Ratio 1.6 (0.9-2); Albumin Level 3.9 gm/dl (3.4-5.0); Bilirubin,Total 0.6 mg/dl (0.2-1.0); Calcium 8.6 mg/dl (8.6-10.3); Creatinine Clr Calc Pharmacy 64.2 ml/min; Est GFR (African American) 63.4 ml/min; Est GFR (Non-African American) 54.7 ml/min; Globulin 2.5 gm/dl (2.5-4.0); Potassium 4.2 mmol/L (3.5-5.1); Total Protein 6.4 gm/dl (6.0-8.3)
[2023-10-07 07:50] LABS: ANTI-Xa, UFH(UnfractionatedHep 0.25 IU/ml (0.3-0.7)
[2023-10-07 11:57] LABS: Appearance Urine Clear (Clear); Bacteria Urine Automated None Seen (None Seen); Bilirubin Urine Negative (Negative); Blood Urine Negative (Negative); Cast Urine Automated 0-2 /lpf (0-2); Color Urine Yellow; Glucose Urine UA Negative (Negative); Ketones Urine Negative (Negative); Leukocyte Esterase Urine 2+ (Negative); Nitrite Urine Negative (Negative); Protein Urine Trace (Negative); RBC Urine Automated 0-2 /hpf (0-2); Specific Gravity Urine 1.011 (1.000-1.030); Urobilinogen Urine Negative (Negative); pH Urine 7.5 (4.5-7.5)
--- NOTE | 2023-10-07 13:58 | Hospitalist Progress Note ---
Date of Service October 07, 2023 Assessment & Plan (1) Pulmonary embolism: Plan: Presented with SOB and CP which had largely resolved several days prior to admission; with left calf cramping. Venous Doppler w/ left peroneal vein DVT. CT angiogram chest with right main p ulmonary artery PE and multiple bilateral segmental and subsegmental PEs. No history personally or in the family of VTE, no history of miscarriages in the patient, no recent surgeries or long travel. She is quite active and not sedentary. She is however on oral contraceptive pills. She is a non-smoker. She has a history of headaches and chronic joint pains, hypothyroidism-question if does have some sort of chronic autoimmune disorder that could put her at risk for hypercoagulability She remains hemodynamically stable, had a mildly elevated troponin which peaked at 61 after admission. 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 Was started on heparin drip and was therapeutic but anti XA level low this AM- increased heparin gtt and repeat anti-XA level this afternoon Plan to start Xarelto on discharge-patient prefers Xarelto due to its once daily dosing. Recommend 6 months of anticoagulation unless hypercoagulable panel abnormal-then consider lifelong anticoagulation Continue telemetry monitoring to look for arrhythmias-none thus far Monitor CBC-hgb stable Hypercoagulable workup drawn and pending-Antithrombin III not drawn as she was already on heparin when labs were drawn, lupus anticoagulant drawn on heparin so will interpret results with caution Checked BRODERICK and rheumatoid factor given chronic joint pains and hypercoagulable state-pending Supplemental oxygen as needed to keep pulse ox greater than 90%-now weaned off but with overnight low POx--> check overnight POx study Continue IV Dilaudid and tylenol as needed for pain control Monitor for withdrawal vaginal bleeding when she discontinues her continuous OCP's-can reach out to gynecology if has any issues With low grade fever evening of 10/05--> UA neg for infection, no cough, probably atelectasis or from clot burden itself--> Start incentive spirometry (2) Renal infarct: Plan: Likely secondary to paradoxical embolus given DVT and PEs, but could also have hypercoagulable state versus a occult atrial fibrillation or flutter Monitor on telemetry for arrhythmia-none so far Echo with bubble study with PFO Treating with anticoagulation Renal function was decreased somewhat with creatinine 1.3 on admission and now improved to 1.1-continue to follow BMP Consult urology appreciated-no acute surgical intervention, recommends supportive care, BP monitoring, hypercoagulable workup Monitor for development of pyelonephritis--> fever 10/05 but repeat UA still without evidence of infection Pain control with IV Dilaudid, APAP prn-pain now improved (3) PFO (patent foramen ovale): Plan: Appreciate cardiology consultation Needs referral to tertiary care as an outpatient to consider closure-patient prefers to go to [facility] with Dr. Naif Vargas at [facility]-where her stepdaughter works-Dr. Hamm will assist with making this referral Could get SONALI at tertiary care as well Will burn ECHO and CTA Chest on CD and try to push CT images through on Sunday (4) Transaminitis: Plan: mild elevation of AST and ALT, could be from hepatic congestion from right sided heart failure? Not likely to be drug effect from heparin Follow LFTs (5) Elevated troponin: Plan: No ischemic changes on ECG. Typically is very active and just had a normal stress test in 06/2023 Secondary to PE Troponin peaked at 61 Echocardiogram No wall motion abnormalities (6) JALIL (acute kidney injury): Plan: Creatinine 1.3 on admission likely secondary to renal infarct Creatinine now improved to 1.1 after 1 L IV fluids Pain in left flank improving which hopefully means she is getting better perfusion of the left kidney on anticoagulation Follow BMP (7) Hypothyroid: Plan: Previously was on levothyroxine but discontinued it. TSH here elevated at 6.7, free T4 normal Subclinical hypothyroidism Follow as an outpatient (8) CYNDEE (generalized anxiety disorder): Plan: Patient recently was prescribed Celexa but had not yet started it. She has been on it in the past and is agreeable to resuming as her anxiety has worsened recently Started Celexa 10 mg p.o. daily Plan Disposition-continued stay PCU, but likely dc to home tomorrow if no further fevers, pain controlled, LFTs improving, and remains stable Full code Admission and Anticipated Discharge Date Admission Date: October 05, 2023 Subjective Pt having some pain in LLQ that is worse with a deep breath in. She did note her POx was low overnight while she was lying flat and improved with waking up and sitting up. She also had a fever to 38.0 C last night that went away with tylenol. No recurrent fevers. Denies SOB and ambulated halls without [place]. No chest pain No bleeding issues noted. Tele with NSR, PACs, PJCs, rates 80s Physical Exam Constitutional: WD/WN, vitals as above Neck: trachea midline, no thyromegaly Respiratory: normal respiratory effort, lungs clear to auscultation Cardiovascular: Rate/Rhythm: regular rate and regular rhythm Heart Sounds: no murmur Extremities: + edema (trace edema left leg) Gastrointestinal (Abdomen): Inspection/Auscultation: abdomen normal to inspection and normal bowel sounds; abdomen not distended Percussion/Palpation: + abdomen tender (+ Mild TTP LLQ without guarding or rebound) and abdomen soft; no guarding Musculoskeletal: Extremities: extremities normal to inspection; no cyanosis and no clubbing Skin: no rashes, warm and dry Neurologic: moves all extremities and awake; no focal motor deficits Psychiatric: A+Ox3, euthymic affect Results & Data Results & Data Vital Signs (Past 12 Hours) Vital Signs Temp Pulse Resp BP BP Pulse Ox O2 Del Method 10/07/23 11:36 36.8 C 83 18 136/92 95 Room Air 10/07/23 07:45 Room Air 10/07/23 07:34 36.6 C 92 H 18 124/74 92 Room Air 10/07/23 03:23 36.9 C 101 H 18 120/79 91 Room Air Laboratory Results CBC, BMP, LFTs, UA, anti XA level reviewed PG Care Time/CCT Total # of Minutes Spent Total Time Spent with Patient: Total time spent is greater than 50% in coordination of care (as documented) at patient's floor/unit and/or counseling patient: Coding Level of Care Code 95705 SUB INP/OBS CARE 3/50MIN Diagnoses Pulmonary embolism I26.99 Renal infarct N28.0 PFO (patent foramen ovale) Q21.12 Transaminitis R74.01 Elevated troponin R79.89 JALIL (acute kidney injury) N17.9 Hypothyroid E03.9 CYNDEE (generalized anxiety disorder) F41.1
[2023-10-07 16:19] LABS: ANTI-Xa, UFH(UnfractionatedHep 0.22 IU/ml (0.3-0.7)
[2023-10-08 00:11] LABS: ANTI-Xa, UFH(UnfractionatedHep 0.24 IU/ml (0.3-0.7)
[2023-10-08 06:28] LABS: Basophils # (auto) 0.03 K/uL (0.00-0.20); Basophils % (auto) 0.4 %; Eosinophils # (auto) 0.04 K/uL (0.00-0.50); Eosinophils % (auto) 0.5 %; Hematocrit (blood only) 36.5 % (37.0-47.0); Hemoglobin 12.4 g/dl (12.0-16.0); Immature Granulocytes # (auto) 0.02 K/uL (0.01-0.20); Immature Granulocytes % (auto) 0.3 %; Lymphocytes # (auto) 1.34 K/uL (1.20-3.40); Lymphocytes % (auto) 17.4 %; Mean Corpuscular Hemoglobin 31.4 pg (25.0-34.0); Mean Corpuscular Volume 92.4 fL (80.0-100.0); Monocytes # (auto) 0.51 K/uL (0.11-0.59); Monocytes % (auto) 6.6 %; Neutrophils # (auto) 5.78 K/uL (1.40-6.50); Neutrophils % (auto) 74.8 %; Platelet Count 184 K/uL (130-400); RDW Coefficient of Variation 12.2 % (11.5-14.5); RDW Standard Deviation 41.2 fL (36.4-46.3); Red Blood Count 3.95 M/uL (4.20-5.40); White Blood Count 7.72 K/ul (4.8-10.8)
[2023-10-08 06:50] LABS: Albumin Globulin Ratio 1.5 (0.9-2); Albumin Level 3.5 gm/dl (3.4-5.0); BUN Creatinine Ratio 6.4 (10-20); Bilirubin,Total 0.5 mg/dl (0.2-1.0); Calcium 8.4 mg/dl (8.6-10.3); Creatinine Clr Calc Pharmacy 67.8 ml/min; Est GFR (African American) 67.6 ml/min; Est GFR (Non-African American) 58.3 ml/min; Globulin 2.4 gm/dl (2.5-4.0); Magnesium 2.1 mg/dl (1.7-2.4); Potassium 4.2 mmol/L (3.5-5.1); Total Protein 5.9 gm/dl (6.0-8.3)
[2023-10-08 06:58] LABS: ANTI-Xa, UFH(UnfractionatedHep 0.28 IU/ml (0.3-0.7)
[2023-10-08] MEDS: RIVAROXABAN 15 MG TAB PO SCH (09:11)
--- NOTE | 2023-10-08 13:06 | Discharge Summary ---
Discharge Summary Date of Service October 08, 2023 Principal Dx & Hospital Course #1 = Principal Diagnosis (1) Pulmonary embolism: Presented with SOB and CP which had largely resolved several days prior to admission; with left calf cramping. Venous Doppler w/ left peroneal vein DVT. CT angiogram chest with right main pulmonary artery PE and multiple bilateral segmental and subsegmental PEs. No history personally or in the family of VTE, no history of miscarriages in the patient, no recent surgeries or long travel. She is quite active and not sedentary. She is however on oral contraceptive pills. She is a non-smoker. She has a history of headaches and chronic joint pains, hypothyroidism-question if does have some sort of chronic autoimmune disorder that could put her at risk for hypercoagulability She remains hemodynamically stable, had a mildly elevated troponin which peaked at 61 after admission. 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 Was started on heparin drip and was therapeutic but then anti XA levels remained slightly low -switched to Xarelto 15mg po bid Start Xarelto on discharge-patient prefers Xarelto due to its once daily dosing. Recommend 6 months of anticoagulation unless hypercoagulable panel abnormal- then consider lifelong anticoagulation Continue telemetry monitoring to look for arrhythmias-none thus far Monitor CBC-hgb stable Hypercoagulable workup drawn and pending-Antithrombin III not drawn as she was already on heparin when labs were drawn, lupus anticoagulant drawn on heparin so will interpret results with caution Checked BRODERICK and rheumatoid factor given chronic joint pains and hypercoagulable state-pending at time of discharge Not requiring supplemental oxygen and overnight POx study negative Monitor for withdrawal vaginal bleeding when she discontinues her continuous OCP's-can reach out to gynecology if has any issues With low grade fever evening of 10/05--> UA neg for infection, no cough, probably atelectasis or from clot burden itself--> Started incentive spirometry and resolved Stable for discharge and f/u with PCP, Hematology after discharge F/u with tertiary care Cardiology for PFO (2) Renal infarct: Likely secondary to paradoxical embolus given DVT and PEs, but could also have hypercoagulable state versus a occult atrial fibrillation or flutter Monitored on telemetry for arrhythmia-none so far Echo with bubble study with PFO Treating with anticoagulation Renal function was decreased somewhat with creatinine 1.3 on admission and now improved to 1.09-continue to follow BMP as outpt in 1 week Consult urology appreciated-no acute surgical intervention, recommends supportive care, BP monitoring, hypercoagulable workup Monitor for development of pyelonephritis--> fever 10/05 but repeat UA still without evidence of infection and none further, doing well, flank pain very minimal now (3) PFO (patent foramen ovale): Appreciate cardiology consultation Needs referral to tertiary care as an outpatient to consider closure-patient prefers to go to [facility], [place], operated by [facility] with Dr. Naif Vargas at [facility]-where her stepdaughter works-Dr. Hamm will assist with making this referral Could get SONALI at tertiary care as well Burned ECHO and CTA Chest on CD and gave to patient (4) Transaminitis: mild elevation of AST and ALT, could be from hepatic congestion from right sided heart failure? Not likely to be drug effect from heparin Follow LFTs--> now normal (5) Elevated troponin: No ischemic changes on ECG. Typically is very active and just had a normal stress test in 06/2023 Secondary to PE Troponin peaked at 61 Echocardiogram No wall motion abnormalities (6) JALIL (acute kidney injury): Creatinine 1.3 on admission likely secondary to renal infarct Creatinine now improved to 1.09 after 1 L IV fluids Pain in left flank improving which hopefully means she is getting better perfusion of the left kidney on anticoagulation Follow BMP as outpt in 1 week (7) Hypothyroid: Previously was on levothyroxine but discontinued it. TSH here elevated at 6.7, free T4 normal Subclinical hypothyroidism Follow as an outpatient (8) CYNDEE (generalized anxiety disorder): Patient recently was prescribed Celexa but had not yet started it. She was started on it here but now that symptoms of SOB, CP found to be from PEs, she now does not want to be on Celexa-stopped Plan Disposition- dc to home today, doing very well Full code Notes For Next Care Provider Check BMP in 1 week Follow up with Hematology-referral to be placed by Nurse Navigator Follow up on hypercoagulable workup as well as BRODERICK, RF Medication Changes From Visit Added Xarelto 15mg po bid x 21 days then 20mg daily Stopped Celexa Stopped control pills Admission HPI Per Admitting Provider This patient is a 53-year-old female with history of generalized anxiety disorder and hypothyroidism who presents to the ER with acute onset of left flank pain wrapping around to the left lower quadrant that woke her from sleep at 430 this morning. She does reports that she had some chest pain and shortness of breath a few days ago but that has since resolved. She has noticed some swelling in the ankles lately and had cramping in her left calf this morning. She denies any urinary or bowel issues. No blood in the stool or urine. No fevers or chills. She has had intermittent issues with shortness of breath and a dry cough but had a full cardiac and pulmonary workup several months ago that was normal with normal stress test and PFTs. In the ER, she was found to have a normal noncontrast CT abdomen/pelvis and a normal chest x-ray, however her troponin was mildly elevated. I suggested a D- dimer which was added on and was elevated and a subsequent CT angiogram of the chest showed a right main pulmonary artery PE and multiple bilateral segmental and subsegmental PEs. A CT of the abdomen/pelvis with contrast then showed multiple infarcts in the left kidney. She will be admitted for PEs and left renal infarct. Discharge Exam Constitutional WD/WN, vitals as above Neck trachea midline, no thyromegaly Respiratory normal respiratory effort, lungs clear to auscultation Cardiovascular Rate/Rhythm: regular rate and regular rhythm Heart Sounds: no murmur Extremities: + edema (trace edema left leg) Musculoskeletal Extremities: extremities normal to inspection; no cyanosis and no clubbing Skin no rashes, warm and dry Neurologic moves all extremities and awake; no focal motor deficits Psychiatric A+Ox3, euthymic affect Updated Medication List Medication Instructions Recorded Confirmed Type rivaroxaban 15 mg tablet (Xarelto) 15 mg PO BID 21 days #41 tabs 10/08/23 Rx rivaroxaban 20 mg tablet (Xarelto) 20 mg PO PM #30 tabs 10/08/23 Rx Hospital Stay Data Consultations 10/05/23 09:27 ED Decision to Admit Stat 10/05/23 12:25 Consult Cardiology Routine 10/05/23 12:30 Consult Urology Routine 10/07/23 13:50 Burn CD for patient Routine Diagnostic Imagining Performed 10/05/23 07:42 CT abd pelvis wo con Stat 10/05/23 11:00 CT abd pelvis IV con only Stat CT angio chest PE protocol Stat 10/05/23 11:50 US venous doppler LE LT Stat ECHO Pending Results Patient Have Any Pending Studies at Discharge: Yes (Hypercoagulable workup, BRODERICK, Rheumatoid factor) Discharge Instructions Given to Patient (Per Discharging Provider) You were admitted after finding blood clots in your leg and lungs, as well as an infarction of your kidney. You were found to have a hole in the heart between your atria where the blood clot was able to cross over from right to left. You will be referred to the Dissolver Operator at [facility] as we discussed and Dr. Hamm's office should be handling this. Your blood clots most likely are provoked by being on control pills and these were stopped. You did have blood tests done to look for blood clotting disorders and these are pending at the time of discharge. Your PCP can follow up on these results, but you will also be referred to a Financial Sales Consultant for further evaluation. If you have any difficulty with bleeding, or fall and hit your head, please return to the hospital right away. It was a pleasure taking care of you! Lizzy Pyle M.D. Total Time Total Time Spent Total Time Spent (In Minutes): 35 min Coding Level of Care Code 81944 INP/OBS DISCH >30 MIN Diagnoses Pulmonary embolism I26.99 Renal infarct N28.0 PFO (patent foramen ovale) Q21.12 Transaminitis R74.01 Elevated troponin R79.89 JALIL (acute kidney injury) N17.9 Hypothyroid E03.9 CYNDEE (generalized anxiety disorder) F41.1
[2023-10-09 12:42] LABS: Anti Nuclear Antibody Screen NEGATIVE (NEGATIVE); Rheumatoid Factor <10 IU/mL (<14)
== END 2023-10-08 13:32 | disposition home or self-care (01) | DRG 698 ==
LOC: SUATTDRO → 2S 07:05 → ED 07:05 → 2S 15:58